=== PATIENT | female | born 1990 | race Caucasian/White ===

== ENCOUNTER → 2016-11-12 | Outpatient (CLI) | payer MEDICAID ==
[~2016-11-12] MED LIST: ACETAMINOPHEN325 MG PO; APNO TOP; DERMOPLAST SPRA56 GM TOP; DULCOLAX STOOL100 MG PO; LANSINOH7 GM TOP; MOTRIN800 MG PO; PERCOCET 5-3251 EACH PO; PRENATAL 1+1)(P1 TAB PO; SURFAK240 MG PO; TUCKS1 EACH TOP
== END | disposition disaster alternative care site (69) ==
LOC: GLAB 07:59
DX: R73.02 Impaired glucose tolerance (oral) (principal)